=== PATIENT | female | born 1945 | race Caucasian/White ===

== ENCOUNTER 2021-08-08 09:25 | Inpatient (IN) | payer OTHER, MEDICARE ==
[2021-08-08 10:40] LABS: #Basophils 0.1 10x3/uL (0.0-0.2); #Eosinphils 0.1 10x3/uL (0.0-0.5); #Monocytes 1.1 10x3/uL (0.0-1.1); #Neutrophils 8.3 10x3/uL (1.5-8.4); %Basophils 0.4 % (0.0-2.0); %Eosinophils 1.2 % (0.0-6.0); %Lymphocytes 20.3 % (18.0-47.0); %Monocytes 8.9 % (0.0-10.0); %Neutrophils 68.7 % (40.0-75.0); Hemoglobin 13.4 g/dL (12.0-15.5); Mean Corpuscular HGB CONC 31.9 g/dL (32.0-36.0); Mean Corpuscular Hemoglobin 29.3 pg (27.0-33.0); Mean Corpuscular Volume 91.7 fl (81.6-98.3); Mean Platelet Volume 11.1 fl (7.4-10.4); Platelet Count 216 10x3/uL (150-450); RBC Distribution Width 14.6 % (11.5-14.5); Red Blood Cell (RBC) Count 4.58 10x6/uL (3.90-5.03)
[2021-08-08 10:51] LABS: ALT (SGPT) 60 U/L (8-55); AST (SGOT) 35 U/L (5-34); Albumin 4.3 g/dL (3.4-4.8); Alkaline Phosphatase 83 U/L (40-110); Anion Gap 15 mmol/L (10-20); BUN (Urea Nitrogen) 18 mg/dL (9.8-20.1); Bilirubin, Total 0.7 mg/dL (0.2-1.2); Calc. Creatinine Clearance 0 mL/min (70-130); Calcium 9.2 mg/dL (7.8-10.44); Carbon Dioxide 29 mmol/L (23-31); Chloride 102 mmol/L (98-107); Globulin 2.6 g/dL (2.4-3.5); Glucose 144 mg/dL (83-110); Potassium 4.1 mmol/L (3.5-5.1); Protein, Total 6.9 g/dL (5.8-8.1); Sodium 142 mmol/L (136-145)
[2021-08-08] MEDS ORDERED: Acetaminophen 325 MG TAB ONE (11:45)
[2021-08-08] MEDS ORDERED: Fentanyl 100 MCG/2 ML VIAL ONE (11:45)
[2021-08-08] MEDS ORDERED: Ondansetron PF 4 MG/2 ML Vial ONE (11:45)
[2021-08-08 11:47] LABS: Bilirubin Neg (Negative); Blood, Urine 250 (Negative); Clarity Clear (Clear); Glucose, Urine (Dipstick) Normal (Negative); Ketone, Urine Negative (Negative); Leukocyte 25 (Negative); Nitrite Negative (Negative); Protein, Urine (Dipstick) 15 mg/dl (Neg-Trace); Specific Gravity, Urine 1.005 (1.002-1.036); Urobilinogen Normal mg/dL (Less than 2)
[2021-08-08 11:58] LABS: Squamous Epithelial 0-3 HPF (0-3); WBC/HPF 0-3 HPF (0-3)
[2021-08-08 11:59] LABS: Bacteria/HPF Rare-Few HPF (None Seen); Calcium Oxalate Crystals Rare HPF (None Seen)
[2021-08-08] MEDS ORDERED: Diazepam 10 MG/2 ML SYRINGE ONE (12:42)
[2021-08-08 15:24] LABS: SARS-CoV-2 NAA Rapid Test Not Detected (NotDetected)
[2021-08-08] MEDS ORDERED: Acetaminophen 650 MG Suppository PR PRN (15:31)
[2021-08-08] MEDS ORDERED: Ondansetron ODT 4 MG TAB PO PRN (15:31)
[2021-08-08] MEDS ORDERED: HYDROcodone/Acetaminophen 10/325 mg Tablet PO SCH (15:40)
[2021-08-08] MEDS ORDERED: Lorazepam 1 MG TAB PO PRN (15:40)
[2021-08-08] MEDS ORDERED: Aspirin 81 mg Enteric Coated Tablet PO SCH (15:45)
[2021-08-08] MEDS ORDERED: Methocarbamol 500 MG TAB PO PRN (15:46)
[2021-08-08] MEDS ORDERED: Morphine 2 MG/ML VIAL SLOW IVP SCH ×2 (16:00)
[2021-08-08] MEDS: Ondansetron PF 4 MG/2 ML Vial IVP PRN (16:07)
[2021-08-08 18:38] VITALS: BMI 46.6
[2021-08-08] MEDS: Gabapentin 300 MG CAP PO SCH (21:29)
[2021-08-08] MEDS: HYDROcodone/Acetaminophen 5/325 mg Tablet PO PRN (21:30)
[2021-08-08] MEDS ORDERED: oxyCODONE 5 MG TAB PO SCH (23:00)
[2021-08-09] MEDS: Ondansetron PF 4 MG/2 ML Vial IVP PRN (00:41)
[2021-08-09] MEDS: Morphine 4 MG/ML VIAL SLOW IVP PRN ×3 (00:41→23:15)
[2021-08-09 04:53] LABS: #Basophils 0.1 10x3/uL (0.0-0.2); #Eosinphils 0.3 10x3/uL (0.0-0.5); #Monocytes 0.9 10x3/uL (0.0-1.1); %Basophils 0.6 % (0.0-2.0); %Eosinophils 2.2 % (0.0-6.0); %Lymphocytes 21.3 % (18.0-47.0); %Neutrophils 67.5 % (40.0-75.0); Hemoglobin 13.2 g/dL (12.0-15.5); Mean Corpuscular HGB CONC 32.4 g/dL (32.0-36.0); Mean Corpuscular Hemoglobin 29.9 pg (27.0-33.0); Mean Corpuscular Volume 92.1 fl (81.6-98.3); Platelet Count 213 10x3/uL (150-450); RBC Distribution Width 14.2 % (11.5-14.5); Red Blood Cell (RBC) Count 4.42 10x6/uL (3.90-5.03); White Blood Cell (WBC) Count 11.8 10x3/uL (3.5-10.5)
[2021-08-09] MEDS: Lorazepam 2 MG/ML VIAL SLOW IVP SCH (04:54)
[2021-08-09 05:16] LABS: Anion Gap 16 mmol/L (10-20); BUN (Urea Nitrogen) 15 mg/dL (9.8-20.1); Calc. Creatinine Clearance 130 mL/min (70-130); Calcium 9.3 mg/dL (7.8-10.44); Carbon Dioxide 27 mmol/L (23-31); Chloride 100 mmol/L (98-107); Glucose 123 mg/dL (83-110); Potassium 4.2 mmol/L (3.5-5.1); Sodium 139 mmol/L (136-145)
[2021-08-09] MEDS: Aspirin 81 mg Enteric Coated Tablet PO SCH (08:48)
[2021-08-09] MEDS: HYDROcodone/Acetaminophen 5/325 mg Tablet PO PRN ×2 (08:48→20:59)
[2021-08-09] MEDS: Gabapentin 300 MG CAP PO SCH ×3 (08:49→21:00)
[2021-08-09] MEDS: Acetaminophen 325 MG TAB PO PRN ×2 (12:52→17:08)
[2021-08-10] MEDS: HYDROcodone/Acetaminophen 5/325 mg Tablet PO PRN ×2 (05:20→12:55)
[2021-08-10] MEDS: Lorazepam 2 MG/ML VIAL SLOW IVP SCH (06:02)
[2021-08-10] MEDS: Gabapentin 300 MG CAP PO SCH ×3 (08:04→20:31)
[2021-08-10] MEDS: Morphine 4 MG/ML VIAL SLOW IVP PRN ×2 (08:04→20:30)
[2021-08-10] MEDS: Aspirin 81 mg Enteric Coated Tablet PO SCH (08:05)
[2021-08-10] MEDS: Acetaminophen 325 MG TAB PO PRN (18:42)
[2021-08-11] MEDS: Morphine 4 MG/ML VIAL SLOW IVP PRN (02:22)
[2021-08-11] MEDS ORDERED: Polyethylene Glycol 3350 17 GM Packet PO SCH (08:15)
[2021-08-11] MEDS: Gabapentin 300 MG CAP PO SCH ×2 (08:30→20:17)
[2021-08-11] MEDS: Aspirin 81 mg Enteric Coated Tablet PO SCH (08:32)
[2021-08-11] MEDS: Acetaminophen 325 MG TAB PO PRN (08:32)
[2021-08-11] MEDS: HYDROcodone/Acetaminophen 5/325 mg Tablet PO PRN ×2 (09:56→15:22)
[2021-08-11] MEDS: Cyclobenzaprine 10 MG TAB PO SCH ×2 (15:22→20:17)
[2021-08-12] MEDS: Acetaminophen 325 MG TAB PO PRN (04:17)
[2021-08-12] MEDS: HYDROcodone/Acetaminophen 5/325 mg Tablet PO PRN ×2 (06:54→20:45)
[2021-08-12] MEDS: Losartan Potassium 50 MG TAB PO SCH (10:01)
[2021-08-12] MEDS: Aspirin 81 mg Enteric Coated Tablet PO SCH (10:01)
[2021-08-12] MEDS: Rosuvastatin 20 MG TAB PO SCH (10:01)
[2021-08-12] MEDS: Cyclobenzaprine 10 MG TAB PO SCH ×3 (10:01→20:46)
[2021-08-12] MEDS: Polyethylene Glycol 3350 17 GM Packet PO SCH ×2 (10:02→11:46)
[2021-08-12] MEDS: Morphine 4 MG/ML VIAL SLOW IVP PRN (10:02)
[2021-08-12] MEDS: Gabapentin 300 MG CAP PO SCH (20:45)
[2021-08-13] MEDS: Rosuvastatin 20 MG TAB PO SCH (10:14)
[2021-08-13] MEDS: Cyclobenzaprine 10 MG TAB PO SCH (10:14)
[2021-08-13] MEDS: Aspirin 81 mg Enteric Coated Tablet PO SCH (10:14)
[2021-08-13] MEDS: Polyethylene Glycol 3350 17 GM Packet PO SCH (10:14)
[2021-08-13] MEDS: Losartan Potassium 50 MG TAB PO SCH (10:15)
[2021-08-13 12:58] VITALS: BP 127/60; TEMP 97.2
== END 2021-08-13 12:30 | DRG 552 ==
LOC: CSHERS 09:25 → CSHTELE 14:01 → OBSVTOIN 08-10 11:22
PROVIDERS: ADMIT Family Medicine; ATTEND Internal Medicine
DX: M54.9 Dorsalgia, unspecified (principal); Z68.42 Body mass index [BMI] 45.0-49.9, adult; E66.01 Morbid (severe) obesity due to excess calories; M19.90 Unspecified osteoarthritis, unspecified site; K21.9 Gastro-esophageal reflux disease without esophagitis; Z20.822 Contact with and (suspected) exposure to COVID-19; I10 Essential (primary) hypertension; F41.9 Anxiety disorder, unspecified; F32.A Depression, unspecified; E78.5 Hyperlipidemia, unspecified; Z96.653 Presence of artificial knee joint, bilateral; Z96.643 Presence of artificial hip joint, bilateral; Z96.611 Presence of right artificial shoulder joint; K59.03 Drug induced constipation; W01.0XXA Fall on same level from slipping, tripping and stumbling without subsequent striking against object, initial encounter; T40.2X5A Adverse effect of other opioids, initial encounter; Z79.82 Long term (current) use of aspirin; Z79.899 Other long term (current) drug therapy; Z90.49 Acquired absence of other specified parts of digestive tract; Z90.710 Acquired absence of both cervix and uterus
CPT/HCPCS: 36415; 71045; 72131; 72192; 80048; 80053; 81003; 81015; 84484; 85025; 93005; 94760; 96374; 96375; 96376; G0378; J2060; J2270; J2405; J3010; J3360; Q0162; U0002

== ENCOUNTER 2022-07-20 01:59 | Emergency (ER) | payer MEDICARE ==
[2022-07-20] MEDS ORDERED: Ketorolac Tromethamine 30 MG/ML VIAL ONE (02:32)
== END 2022-07-20 03:15 | disposition home or self-care (01) ==
LOC: CSHERS 01:59
DX: S82.831A Other fracture of upper and lower end of right fibula, initial encounter for closed fracture (principal); I10 Essential (primary) hypertension; Z79.899 Other long term (current) drug therapy; W19.XXXA Unspecified fall, initial encounter; Y92.009 Unspecified place in unspecified non-institutional (private) residence as the place of occurrence of the external cause
CPT/HCPCS: 96374; J1885